=== PATIENT | male | born 1950 | race Caucasian/White ===

== ENCOUNTER → 2024-11-15 | Outpatient (CLI) | payer MEDICARE, OTHER ==
--- NOTE | 2024-11-15 16:20 | US ---
EXAMINATION TYPE: US kidneys/renal and bladder DATE OF EXAM: 11/15/2024 COMPARISON: NONE CLINICAL INDICATION: Male, 73 years old with history of R10.9 RT FLANK PAIN; Right flank pain TECHNIQUE: Grayscale imaging of the bilateral kidneys and urinary bladder: FINDINGS: EXAM MEASUREMENTS: Right Kidney: 9.1 x 3.8 x 4.0 cm Left Kidney: 10.4 x 4.6 x 4.9 cm Right Kidney: No hydronephrosis or masses seen Left Kidney: No hydronephrosis or masses seen Bladder: anechoic Bilateral Jets seen: yes There is no evidence for hydronephrosis at this point in time. No nephrolithiasis is seen. No anum s are identified. The urinary bladder is anechoic. IMPRESSION: No evidence for acute process. No obstructive uropathy or renal calculus. [facility], , 11/15/2024 4:17 PM
== END | disposition home or self-care (01) ==
LOC: RADUSWWP 15:46
PROVIDERS: ATTEND Internal Medicine
DX: R10.9 Unspecified abdominal pain (principal)
CPT/HCPCS: 76770

== ENCOUNTER → 2024-11-25 | Outpatient (CLI) | payer MEDICARE ==
[2024-11-25 09:27] LABS: African American GFR (CKD) >90 (>60 ml/min/1.73 sqM); Blood Urea Nitrogen 16 mg/dL (9-20); Non-African American GFR(CKD) 83 (>60 ml/min/1.73 sqM)
--- NOTE | 2024-11-26 08:01 | CT ---
EXAMINATION TYPE: CT abdomen pelvis w con DATE OF EXAM: 11/25/2024 11:00 AM COMPARISON: None. CLINICAL INDICATION: Male, 73 years old with history of R10.31RIGHT LOWER QUADRANT PAIN, back pain th at radiates to lower abdomen TECHNIQUE: Axial images were obtained from above the diaphragm to the pubic rami in the axial plane a t 5 mm thick sections. Reconstructed images are reviewed on the computer in the coronal plane. CONTRAST: 100ml mL of Isovue 300. Study performed with Oral Contrast DLP: 817.90 mGycm, Automated exposure control for dose reduction was used. FINDINGS: Limited CT sections are obtained the lung bases. The lung bases are clear. Moderate coronary artery calcification is present. CT ABDOMEN: Liver: Normal Spleen: Normal Pancreas: Normal Adrenal glands: The adrenal glands are normal. Gallbladder: Normal Kidneys: No masses are evident. No hydronephrosis is present. Peripelvic cysts are present on the l eft. Delayed images were obtained through the kidneys, which remain unremarkable. Aorta: Vascular calcification is within the aorta. Inferior vena cava: Normal. CT PELVIS: Loops of bowel within the abdomen and pelvis are normal. There are a few scattered diverticula are p resent within the sigmoid colon There are loops of bowel which are incompletely distended or lack o ral contrast limiting their evaluation. Appendix: Not identified. No dilated tubular structure or inflammatory changes are evident. Urinary bladder: Normal. Genitourinary structures: Prostate is mildly prominent Osseous structures: No suspicious lytic or sclerotic lesions. IMPRESSION: 1. Mild diverticulosis without acute diverticulitis. 2. Appendix is not identified. No dilated tubular structure or inflammatory changes evident. [facility], , 11/26/2024 7:58 AM
== END | disposition home or self-care (01) ==
LOC: RADCTMAIN 08:43
PROVIDERS: ATTEND Internal Medicine
DX: K57.30 Diverticulosis of large intestine without perforation or abscess without bleeding (principal)
CPT/HCPCS: 82565; 84520; 74177; 36415; Q9967

== ENCOUNTER → 2024-12-05 | Outpatient (CLI) | payer MEDICARE ==
--- NOTE | 2024-12-05 13:42 | MR ---
INDICATION: Patient age:Male; 73 years old; Reason for study: M54.50 LOW BACK PAIN, UNSPECIFIED; PHH. COMPARISONS: CT abdomen and pelvis 11/25/2024, lumbosacral spine radiographs 11/04/2024. TECHNIQUE: Multi planar, multi sequence imaging was performed utilizing: T1-weighted, T2-weighted, a nd turbo inversion recovery imaging of the lumbar spine. The patient was not given contrast. FINDINGS: The lumbar vertebral bodies do have preserved heights. Mild dextrocurvature of the lumbar spine with apex at L2. Grade 1 anterolisthesis of L4 on L5 without evidence of pars defects. Multilev el anterior osteophytosis. Multilevel disc desiccation is present. Schmorl's node involving the super ior endplate of L5 vertebral body with increased STIR signal consistent with edema. Type I Modic nolan ges involving the endplates around the L2-L3 disc. Additional type I Modic changes involving the ante rior aspects of the endplates of the T11-T12 and T12-L1 there is. The conus medullaris and the distal spinal cord do appear unremarkable with regards to their signal intensity and morphology. T12-L1: No significant disc pathology is identified. The spinal canal and neural foramina are patent. L1-L2: No significant disc pathology is identified. The spinal canal is patent. The left neural fora men is patent. Mild right neural foraminal stenosis. L2-L3: Diffuse disc bulge with left-sided ligamentum flavum buckling and bilateral facet arthropathy . More prominent left facet arthropathy. Results in mild central canal stenosis. Mild right and sever e left neural foraminal stenosis. L3-L4: Diffuse disc bulge. No significant spinal canal stenosis. Bilateral facet arthropathy with le ft greater than right. Moderate left and mild right neural foraminal stenosis. L4-L5: Broad-based disc bulge with ligamentum flavum buckling and bilateral facet arthropathy. Result s in mild to moderate central canal stenosis. [id number] left and mild right neural foraminal s tenosis. L5-S1: The intervertebral disc appears round on its contour posteriorly without significant mass eff ect upon the thecal sac. Ligamentum flavum buckling. Facet joints are enlarged. Mild left and moderat e right neural foraminal stenosis. Other significant findings: Left renal T2 hyperintense than wall sinus cysts. No follow-up recommende d. IMPRESSION: 1. 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 Most pronounced at L4-L5. No disc herniation. 2. Grade 1 retrolisthesis L4 on L5 without evidence of pars defects. 3. Mild dextrocurvature of the lumbar spine. [facility], , 12/05/2024 1:39 PM
== END | disposition home or self-care (01) ==
LOC: RADMRIMAIN 12:41
PROVIDERS: ATTEND Internal Medicine
DX: M51.360 Other intervertebral disc degeneration, lumbar region with discogenic back pain only (principal); M43.16 Spondylolisthesis, lumbar region; M41.86 Other forms of scoliosis, lumbar region
CPT/HCPCS: 72148